=== PATIENT | female | born 1950 | race Caucasian/White ===

== ENCOUNTER 2025-07-09 20:59 | Emergency (ER) | payer BC, SELFPAY ==
[2025-07-09 21:02] VITALS: BP 145/89
--- NOTE | 2025-07-10 00:53 | ED.SKININJ ---
HPI-Injury
General
Chief Complaint: Bite
Source: patient
Exam Limitations: none
Time Seen by Provider: 07/09/25 23:30
Nursing documentation reviewed up to this point in time: agreed with
History of Present Illness-Injury
Is this injury a work related problem?: No
Is pt an associate of [facility]?: No
Initial Injury comments:
Patient is a 74-year-old female with history atrial fibrillation on Eliquis, hypertension who presents to the emergency department for evaluation of dog bite on left hand. Patient states this morning she was giving her Pomeranian an insulin shot
when he bit her on the left hand. She reports swelling and pain in left hand worsening throughout the day as well as persistent oozing from wound. She has also been unable to remove her rings.
She denies any numbness/tingling in left hand or fingers.
Patient states her dog is fully vaccinated.
She states that her last tetanus shot was within the past 3 years. Patient is anticoagulated on Eliquis.
Review of Systems
Review of Systems
Allergies reviewed?: Yes
All Other Systems: ROS reviewed and negative except as documented in HPI and ROS
Phy Exam
Physical Exam
Physical Exam:
Vitals: Hypertensive, otherwise stable vital signs. Afebrile
General: Patient is slightly disheveled appearing with poor hygiene
Skin: Approximately 1 cm laceration to left dorsal hand at medial aspect with minimal active bleed. Very minimal wound noted at inferior aspect of left palm.
Head: Normocephalic, atraumatic
Throat: Poor dentition, protecting airway
Neck: Normal ROM, no cervical spine tenderness
Cardiac: Regular rate
Pulm: No apparent respiratory distress
Abdomen: Nondistended
Extremities: Significant edema and tenderness of left hand with lacerations as above. No evidence of tendon involvement. Compartments soft. Limited range of motion in left hand/fingers secondary to swelling and pain. Normal sensation. Capillary
refill less than 2 seconds in digits. 2+ palpable radial pulse.
Neuro: Grossly intact
Psychiatric: Normal affect.
Course
Orders/Labs/Results
Orders:
Orders
07/09/25 23:38
Hand, Left 3 View [CR Hand - Left Min 3 Views] Urgent
Comment:
Reason For Exam: dog bite; significant swelling
07/10/25 00:46
Amoxicillin 875 mg/Clav 125 mg [Augmentin 875 mg/125 mg] 1 tablet PO NOW STA
Vital Signs
Initial and Last Documented VS:
Initial Vital Signs
Temp Pulse Resp BP Pulse Ox
98.4 F 84 16 145/89 98
07/09/25 21:02 07/09/25 21:02 07/09/25 21:02 07/09/25 21:02 07/09/25 21:02
Last Documented Vital Signs
Temp Pulse Resp BP Pulse Ox
98.4 F 90 18 142/90 96
07/09/25 21:02 07/10/25 00:57 07/10/25 00:57 07/10/25 00:57 07/10/25 00:57
Procedures
Ring removal
Ring removed with: ring cutters
Is finger swollen distally?: No
Distal sensation: intact to touch
Distal capillary refill: brisk
MDM/Problems Addressed
Differential Diagnosis Includes:
Not limited to: Dog bite, laceration, hematoma, contusion, cellulitis, etc.
MDM/Problems Addressed:
74-year-old female with history as documented presenting with dog bite to left hand which occurred today. This was the patient's dog who is fully vaccinated. Patient has had persistent oozing from the wound as well as progressively worsening
swelling and pain of left hand. No associated fever, numbness/tingling or coolness to affected hand. Unable to get rings off at home. Vital signs and physical exam as above.
Patient did not tolerate attempted manual removal of rings and preferred that I cut them. Both rings were removed utilizing ring cutters without any difficulty. Given degree of swelling and pain�will obtain x-ray of left hand to rule out
associated fracture or foreign body. Will plan to allow wounds to heal by secondary intention to prevent any further risk of infection.
Update: I did review x-ray of left hand which does not reveal any acute fracture or retained foreign body. Laceration was irrigated thoroughly with normal saline. Patient has normal neurovascular exam of left hand/fingers including normal
sensation and capillary refill. Compartments are soft. No current evidence of compartment syndrome. No overlying warmth or significant erythema suggestive of infectious process today.
Ultimately suspect edema secondary to significant contusions of left hand from trauma. Wound care instructions discussed at length. Will start patient on prophylactic Augmentin. Her tetanus shot is up-to-date. Advised strict return precautions
including any signs of infection or neurovascular compromise. Patient comfortable with discharge home and will follow up with primary care as scheduled on Thursday.
Chronic conditions affecting care:
Atrial fibrillation on Eliquis
Acute Exacerbation and/or Progression of Chronic Illness:
N/A
*Radiology
Radiology exam reviewed: preliminary read by ED provider (Hand x-ray reviewed by me-no acute fracture or foreign body)
*Pulse Oximetry
SaO2: 98
Oxygen Mode of Delivery: Room air
Patient hypoxic: no
*EKG
Interpreted by ED Provider?: NA
*Lithographic Artist Interpretation
Rate: Lithographic Artist- N/A
*Critical Care Note
Total Time (30-74mins, 75-104mins- exclusive of procedures): Not Applicable
ED Attending Note
-
Portions of this chart may have been created with voice recognition software.� Occasional wrong word or��sound alike� substitutions may have occurred due to the inherent limitations of voice recognition software.
Discharge Plan
Departure
Patient Disposition: Home (Routine Discharge)
Date of Disposition: 07/10/25
Time of Disposition: 00:46
Patient with high blood pressure during this ER visit?: Yes
Condition: Good
Discharge Problem:
Dog bite of left hand
Instructions: Animal bites - ED (DC)
Prescriptions:
New
amoxicillin-pot clavulanate 875-125 mg tablet
1 tab PO BID Qty: 14 0RF
No Action
carvedilol 25 mg Tablet
25 mg PO BID
amlodipine 5 mg Tablet
5 mg PO DAILY
levothyroxine 25 mcg Tablet
25 mcg PO DAILY
Eliquis 2.5 mg Tablet
2.5 mg PO BID
Referrals:
UNKNOWN - PT DOES,NOT KNOW [Family Provider]
Activity Restrictions/Additional Instructions:
RETURN TO THE EMERGENCY DEPARTMENT WITH ANY SEVERE, INTRACTABLE PAIN, SIGNIFICANT INCREASE IN SWELLING OF LEFT HAND, ANY NUMBNESS/TINGLING IN LEFT HAND OR FINGERS, COOLNESS OF HEAD/FINGERS, ANY SIGNS OF INFECTION INCLUDING FEVER, SIGNIFICANT
REDNESS, WARMTH, PUS DRAINING FROM WOUND, OR ANY OTHER CONCERNS
- A prescription for antibiotics open sent to your pharmacy. Please take this twice a day for the next week.
- Keep wound clean and dry. Wash gently with soap and water daily. Keep covered until healed.
- You should continue to apply ice, elevate and wrap your left hand with Jaime bandage.
- Follow-up with your primary care provider as scheduled on Thursday for further evaluation/management to ensure symptoms are improving
Monitor your symptoms closely and return to the emergency department with any acute worsening/new symptoms or any other concerns
Interventions
Interventions:
*Risk Screen - Suicide Last Done: 07/09/25 21:02
*Neglect/Abuse Screening Last Done: 07/09/25 21:02
*Nursing Disposition Last Done: 07/10/25 01:05
ED-Skin Assessment Last Done: 07/09/25 23:45
Discharge Date and Time
Discharge Date/Time: 07/10/25 01:05
Print Language: [id number]
[2025-07-10] MEDS: AUGMENTIN 875 MG/125 MG 1 TABLET PO (00:55)
[2025-07-10 00:57] VITALS: BP 142/90
== END 2025-07-10 01:05 | disposition home or self-care (01) ==
LOC: EMR 20:59
PROVIDERS: EMERGENCY PHYSICIAN Emergency Medicine
DX: S61.452A Open bite of left hand, initial encounter (principal); W54.0XXA Bitten by dog, initial encounter; Y93.F9 Activity, other caregiving; I48.91 Unspecified atrial fibrillation; I10 Essential (primary) hypertension; Z79.01 Long term (current) use of anticoagulants
CPT/HCPCS: 99283; 73130